=== PATIENT | female | born 1995 | race Asian ===

== ENCOUNTER 2016-07-04 16:17 | Emergency (ER) | payer BC ==
--- NOTE | 2016-07-04 17:15 | UC ---
Complaint Female HPI - HPI Summary HPI Summary: 20 year old presents complaining of vaginal dryness, itchiness, and thick "curd- like" white discharge x 3 days. Denies new sexual partners, unprotected sex, or vaginal odor. - History Of Current Complaint Chief Complaint: UCGU Stated Complaint: ITCHINESS, AND VAGINAL DISCHARGE Time Seen by Provider: 07/04/16 16:43 Hx Obtained From: Patient Hx Last Menstrual Period: 06/01/16 ?: No Onset/Duration: Gradual Onset - Risk Factors Ectopic Risk Factor: IUD Use Ovarian Torsion Risk Factor: Negative - Allergies/Home Medications Allergies/Adverse Reactions: Allergies Allergy/AdvReac Type Severity Reaction Status Date / Time No Known Allergies Allergy Verified 07/04/16 16:46 PMH/Surg Hx/FS Hx/Imm Hx Previously Healthy: Yes Endocrine History Of: Denies: Diabetes, Thyroid Disease, Hyperthyroidism, Hypothyroidism, Dyslipidemia Cardiovascular History Of: Denies: Cardiac Disorders, Hypertension, Pacemaker/ICD, Myocardial Infarction , Congestive Heart Failure, Atrial Fibrillation, Deep Vein Thrombosis, Bleeding Disorders Respiratory History Of: Denies: COPD, Asthma, Bronchitis, Pneumonia, Pulmonary Embolism GI/ History Of: Denies: Gastroesophageal Reflux, Ulcer, Gastrointestinal Bleed, Gall Bladder Disease, Kidney Stones, Diverticulitis, Renal Disease, Urosepsis Neurological History Of: Denies: TIA, CVA, Dementia, Seizures, Migraine Psychological History Of: Denies: Anxiety, Depression, Bipolar Disorder, Schizophrenia, Post Traumatic Stress Disorder - Surgical History Surgical History: None Surgery Procedure, Year, and Place: 03/2016 - Family History Known Family History: Positive: Cardiac Disease - Mother's father: CVA; [place] - Social History Occupation: [employer] Alcohol Use: Occasionally Alcohol Amount: 5 X WEEK Substance Use Type: Marijuana Substance Use Comment - Amount & Last Used: 1 X MONTH Smoking Status (MU): Never Smoked Tobacco Have You Smoked in the Last Year: No - Immunization History Hx Tetanus, Diphtheria Vaccination: No Vaccination Up to Date: Yes Review of Systems Constitutional: Negative Skin: Negative Eyes: Negative ENT: Negative Respiratory: Negative Cardiovascular: Negative Gastrointestinal: Negative Genitourinary: Other - Vaginal dryness, itchiness, and white thick discharge Motor: Negative Neurovascular: Negative Musculoskeletal: Negative Neurological: Negative Psychological: Negative All Other Systems Reviewed And Are Negative: Yes Physical Exam Triage Information Reviewed: Yes Appearance: Well-Appearing, No Pain Distress Vital Signs: Initial Vital Signs Temp 98.4 F 07/04/16 16:41 Pulse 97 07/04/16 16:41 Resp 16 07/04/16 16:41 BP 135/92 07/04/16 16:41 Pulse Ox 100 07/04/16 16:41 Vital Signs Reviewed: Yes Eye Exam: Normal ENT Exam: Normal Dental Exam: Normal Neck exam: Normal Neck: Positive: Supple, Nontender, No Lymphadenopathy Respiratory: Positive: Chest non-tender, Lungs clear, Normal breath sounds, No respiratory distress Cardiovascular: Positive: RRR, No Murmur, Pulses Normal Abdominal Exam: Normal Abdomen Description: Positive: Nontender, No Organomegaly, Soft Bowel Sounds: Positive: Present Musculoskeletal Exam: Normal Musculoskeletal: Positive: Strength Intact, ROM Intact Neurological: Positive: Alert Psychological Exam: Normal Skin Exam: Normal - Additional Comments Patient deferred pelvic exam at this time, would prefer to follow up if treatment does not alleviate symptoms with [facility]. Complaint Female Dx - Differential Dx/Diagnosis Provider Diagnoses: vulvovaginal candidiasis Discharge - Discharge Plan Condition: Stable Disposition: HOME Prescriptions: Fluconazole 150 MG (NF) [Diflucan 150 mg (NF)] 150 mg PO ONCE #2 tab Patient Education Materials: Vulvovaginal Candidiasis (ED) Additional Instructions: Follow-up for full pelvic exam, which was deferred by the patient at this time, if symptoms persist after yeast treatment.
[2016-07-04 17:32] VITALS: BP 135/92
== END 2016-07-04 17:19 | disposition home or self-care (01) ==
LOC: UCEAST 16:17
DX: B37.3 Candidiasis of vulva and vagina (principal); F12.90 Cannabis use, unspecified, uncomplicated
CPT/HCPCS: 99202; G0463

== ENCOUNTER 2016-11-03 18:53 | Emergency (ER) | payer BC ==
[2016-11-03 19:46] VITALS: BP 137/83
[2016-11-03] MEDS ORDERED: Phenazopyridine TAB* 100 MG PO ONE (20:13)
--- NOTE | 2016-11-03 20:37 | UC ---
Complaint Female HPI - HPI Summary HPI Summary: SINCE 10/31/16 HAS HAD INCREASED FREQUENCY, URGENCY, LOW BACK DISCOMFORT. NO EVER. CONCERN FOR UTI. - History Of Current Complaint Chief Complaint: UCGU Stated Complaint: BURNING URINATION Time Seen by Provider: 11/03/16 19:11 Hx Obtained From: Patient Hx Last Menstrual Period: 10/25/16 Onset/Duration: Gradual Onset, Lasting Days, Still Present Timing: Lasting Days Severity Initially: Mild Severity Currently: Moderate Character: Dull Aggravating Factor(s): Urination Associated Signs And Symptoms: Positive: Back Pain. Negative: Fever, Vaginal Bleeding/Discharge, Vaginal Discharge, Nausea, Vomiting(# Of Episodes =), Genital Swelling, Genital Blisters - Risk Factors Ectopic Risk Factor: Negative - Allergies/Home Medications Allergies/Adverse Reactions: Allergies Allergy/AdvReac Type Severity Reaction Status Date / Time No Known Allergies Allergy Verified 11/03/16 19:37 PMH/Surg Hx/FS Hx/Imm Hx Previously Healthy: Yes Endocrine History Of: Denies: Diabetes, Thyroid Disease, Hyperthyroidism, Hypothyroidism, Dyslipidemia Cardiovascular History Of: Denies: Cardiac Disorders, Hypertension, Pacemaker/ICD, Myocardial Infarction , Congestive Heart Failure, Atrial Fibrillation, Deep Vein Thrombosis, Bleeding Disorders Respiratory History Of: Denies: COPD, Asthma, Bronchitis, Pneumonia, Pulmonary Embolism GI/ History Of: Denies: Gastroesophageal Reflux, Ulcer, Gastrointestinal Bleed, Gall Bladder Disease, Kidney Stones, Diverticulitis, Renal Disease, Urosepsis Neurological History Of: Denies: TIA, CVA, Dementia, Seizures, Migraine Psychological History Of: Denies: Anxiety, Depression, Bipolar Disorder, Schizophrenia, Post Traumatic Stress Disorder - Surgical History Surgical History: None Surgery Procedure, Year, and Place: 03/2016 - Family History Known Family History: Positive: Cardiac Disease - Mother's father: CVA; [place], Renal Disease - Social History Occupation: Student Lives: With Family Alcohol Use: Occasionally Alcohol Amount: 5 X WEEK Substance Use Type: None, Marijuana Substance Use Comment - Amount & Last Used: 1 X MONTH Smoking Status (MU): Never Smoked Tobacco Have You Smoked in the Last Year: No - Immunization History Hx Tetanus, Diphtheria Vaccination: No Vaccination Up to Date: Yes Review of Systems Constitutional: Negative Skin: Negative Eyes: Negative ENT: Negative Respiratory: Negative Cardiovascular: Negative Gastrointestinal: Negative Genitourinary: Dysuria, Frequency, Urgency Motor: Negative Neurovascular: Negative Musculoskeletal: Negative Neurological: Negative Psychological: Negative All Other Systems Reviewed And Are Negative: Yes Physical Exam Triage Information Reviewed: Yes Appearance: Well-Appearing, No Pain Distress, Well-Nourished Vital Signs: Initial Vital Signs Temp 99.3 F 11/03/16 19:38 Pulse 94 11/03/16 19:38 Resp 18 11/03/16 19:38 BP 137/83 11/03/16 19:38 Pulse Ox 100 11/03/16 19:38 Vital Signs Reviewed: Yes Eye Exam: Normal Eyes: Positive: Conjunctiva Clear ENT Exam: Normal ENT: Positive: Hearing grossly normal Dental Exam: Normal Neck exam: Normal Neck: Positive: Supple, Nontender, No Lymphadenopathy Respiratory Exam: Normal Respiratory: Positive: Chest non-tender, Lungs clear, Normal breath sounds, No respiratory distress, No accessory muscle use Cardiovascular Exam: Normal Cardiovascular: Positive: RRR, No Murmur, Pulses Normal Abdominal Exam: Normal Abdomen Description: Positive: Nontender, No Organomegaly, Soft. Negative: CVA Tenderness (R), CVA Tenderness (L) Musculoskeletal Exam: Normal Neurological Exam: Normal Psychological Exam: Normal Psychological: Positive: Normal Response To Family Skin Exam: Normal Complaint Female Dx - Differential Dx/Diagnosis Differential Diagnosis/HQI/PQRI: Renal Colic, Sexually Transmitted Disease, Urinary Tract Infection Provider Diagnoses: DYSURIA Discharge - Discharge Plan Condition: Stable Disposition: HOME Prescriptions: Phenazopyridine TAB* [Pyridium 100 mg TAB*] 100 mg PO TID PRN #15 tab PRN Reason: Pain Patient Education Materials: Dysuria (ED) Referrals: [facility] [Outside] No Primary Care Phys,NOPCP [Primary Care Provider] -
--- NOTE | 2016-11-06 12:40 | UC ---
Progress - Progress Note Progress Note: Culture revealed UTI, pt is not treated. I have sent rx for macrobid to pt's pharmacy. Please call and inform pt of this.
== END 2016-11-03 20:35 | disposition home or self-care (01) ==
LOC: UCEAST 18:53
DX: R30.0 Dysuria (principal)
CPT/HCPCS: 81003; 87077; 87086; 99212; A9270-GY; G0463